=== PATIENT | female | born 1985 | race Caucasian/White ===

== ENCOUNTER 2016-11-04 21:13 | Emergency (ER) | payer BC ==
[2016-11-04] MEDS ORDERED: DIPH,PERTUS(ACELL)TETVAC-LF 0.5 ML VIAL IM ONE (21:56)
[2016-11-04] MEDS ORDERED: GELATIN SPONGE,ABSORB (SMALL) 1 EACH SPONGE TOPICAL STA (21:56)
--- NOTE | 2016-11-04 21:59 | ED ---
Wound/Laceration HPI - General Chief Complaint: Wound/Laceration Stated Complaint: finger lac Time Seen by Provider: 11/04/16 21:50 Source: patient, RN notes reviewed Mode of arrival: ambulatory Limitations: no limitations - History of Present Illness Initial Comments: 31-year-old female presents emergency Department chief complaint of finger laceration to her right hand. Patient states that she was using a mandolin slicer and states that she cut her right hand fifth digit. She is unsure when her last tetanus was. Patient denies any paresthesias. Patient states this happened an hour or 2 ago and states that she has tried to stop bleeding states he has not subsided. - Related Data Home Medications Medication Instructions Recorded Confirmed No Known Home Medications [No 11/04/16 11/04/16 Known Home Medications] Allergies Allergy/AdvReac Type Severity Reaction Status Date / Time No Known Allergies Allergy Verified 11/04/16 21:26 Review of Systems ROS Statement: Those systems with pertinent positive or pertinent negative responses have been documented in the HPI. ROS Other: All systems not noted in ROS Statement are negative. Past Medical History Past Medical History: No Reported History History of Any Multi-Drug Resistant Organisms: None Reported Past Surgical History: No Surgical Hx Reported Past Psychological History: Anxiety Smoking Status: Current every day smoker Past Alcohol Use History: Occasional Past Drug Use History: None Reported General Exam Limitations: no limitations General appearance: alert, in no apparent distress Neck exam: Present: normal inspection, full ROM. Absent: tenderness, meningismus, lymphadenopathy Respiratory exam: Present: normal lung sounds bilaterally. Absent: respiratory distress, wheezes, rales, rhonchi, stridor Cardiovascular Exam: Present: regular rate, normal rhythm, normal heart sounds. Absent: systolic murmur, diastolic murmur, rubs, gallop, clicks Extremities exam: Present: other (Right hand fifth digit there is a skin avulsion noted on the distal tip there is no deep involvement shows full range of motion Refill less than 2 seconds) Course Vital Signs 11/04/16 21:20 Temperature 98.8 F Pulse Rate 75 Respiratory 18 Rate Blood Pressure 117/67 O2 Sat by Pulse 98 Oximetry Medical Decision Making - Medical Decision Making 31-year-old female presents emergency department for skin avulsion to her right hand fifth digit. Patient's tetanus was updated Gelfoam was applied patient tolerated well with no complications. The wound was cleaned prior with saline and Betadine. Disposition Clinical Impression: Avulsion of skin of finger Disposition: HOME SELF-CARE Condition: Stable Instructions: Skin Avulsion (ED) Additional Instructions: Please return to the Emergency Department if symptoms worsen or any other concerns. Referrals: None,Stated [Primary Care Provider] - 1-2 days Time of Disposition: 21:59
[2016-11-04 22:30] VITALS: BP 126/69; PULSE 60; RESP 16; TEMP 98.9
== END 2016-11-04 22:30 | disposition home or self-care (01) ==
LOC: EC 21:13
DX: S61.206A Unspecified open wound of right little finger without damage to nail, initial encounter (principal); F17.200 Nicotine dependence, unspecified, uncomplicated; Z23 Encounter for immunization; W45.8XXA Other foreign body or object entering through skin, initial encounter; Y93.89 Activity, other specified
CPT/HCPCS: 90471; 90715; 99282

== ENCOUNTER 2018-02-20 13:38 | Emergency (ER) | payer OTHER ==
[2018-02-20] MEDS ORDERED: SODIUM CHLORIDE 0.9% 1,000 ML IV STA (14:14)
[2018-02-20] MEDS ORDERED: METOCLOPRAMIDE 5 MG/ML 2 ML VIAL IVP STA (14:14)
[2018-02-20] MEDS ORDERED: KETOROLAC 30 MG/ML 1 ML VIAL IVP STA (14:14)
[2018-02-20] MEDS ORDERED: diphenhydrAMINE 50 MG CAP PO STA (14:15)
--- NOTE | 2018-02-20 14:52 | CT ---
EXAMINATION TYPE: CT brain wo con DATE OF EXAM: 02/20/2018 COMPARISON: None INDICATION: Headache for 5-6 months worse in the last 2 months with visual disturbance DLP: 1052.4 mGycm, Automated exposure control for dose reduction was used. CONTRAST: None CT of the brain is performed utilizing 3 mm thick sections through the posterior fossa and 3 mm thick sections through the remaining calvarium. Study is performed within 24 hours of arrival to the hosp [facility]. No abnormal hyperdensity is present to suggest an acute intracranial hemorrhage. No mass lesion is evident. No acute infarcts are evident. Ventricles and sulci are appropriate for the patient age. There is partial opacification of the left maxillary sinus. Remaining paranasal sinuses and mastoid a ir cells within the [id number] are clear. Orbits as visualized within the [id number] are unremarkable. Suprasellar cistern appears unremarka ble. IMPRESSIONS: 1. Normal CT Brain 2. Retention cyst within a partially septated left maxillary sinus.
--- NOTE | 2018-02-20 15:06 | ED ---
General Adult HPI - General Chief complaint: Headache Stated complaint: migraine Time Seen by Provider: 02/20/18 13:47 Source: patient, RN notes reviewed Mode of arrival: ambulatory Limitations: no limitations - History of Present Illness Initial comments: 32-year-old female presents to the emergency department for a chief complaint of headaches 6 months. Patient states headaches are usually an aching pain. Patient states they're sometimes [place] eyes or across her forehead. She also has pain in her face. She complains of pain in her right side of her neck as well. She states these occur about 3 times a week and lasts for hours at a time. She states she also sometimes has pain with movement of her eyes and was not able to drive today. She admits to blurry vision when this pain occurs. 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 She was supposed to follow-up with for this but has not been able to do so. She denies nausea or vomiting.Patient has no other complaints at this time including shortness of breath, chest pain, abdominal pain, nausea or vomiting. - Related Data Home Medications Medication Instructions Recorded Confirmed No Known Home Medications 02/20/18 02/20/18 Allergies Allergy/AdvReac Type Severity Reaction Status Date / Time No Known Allergies Allergy Verified 02/20/18 13:57 Review of Systems ROS Statement: Those systems with pertinent positive or pertinent negative responses have been documented in the HPI. ROS Other: All systems not noted in ROS Statement are negative. Past Medical History Past Medical History: No Reported History History of Any Multi-Drug Resistant Organisms: None Reported Past Surgical History: No Surgical Hx Reported Past Psychological History: Anxiety Smoking Status: Current every day smoker Past Alcohol Use History: Occasional Past Drug Use History: None Reported General Exam Limitations: no limitations General appearance: alert, in no apparent distress Head exam: Present: atraumatic, normocephalic, normal inspection Eye exam: Present: normal appearance, nystagmus (intermittent nystagmus). Absent: EOMI (patient unable to look laterally bilat due to pain), scleral icterus, conjunctival injection Expanded Eyelids: Normal Inspection: Bilateral Pupils: Regular, Round: Bilateral, Reactive: Bilateral Sclera/Conjunctival: Normal Inspection: Bilateral Visual acuity (R) = 20/: 70 Visual acuity (L) = 20/: 40 With correction: No IOP (R) in mmH IOP (L) in mmH IOP measured with: [place] Neck exam: Present: tenderness (Tenderness to the right cervical trapezius). Absent: full ROM (Full flexion and extension, patient has limited rotation to the right to about 20, full rotation to the left) Respiratory exam: Present: normal lung sounds bilaterally. Absent: respiratory distress, wheezes, rales, rhonchi, stridor Cardiovascular Exam: Present: regular rate, normal rhythm, normal heart sounds. Absent: systolic murmur, diastolic murmur, rubs, gallop, clicks Neurological exam: Present: alert, oriented X3, CN II-XII intact Expanded Patient oriented to: Present: person, place, time Speech: Present: fluid speech Cranial nerves: EOM's Intact: Normal, Tongue Deviation: Normal, Nystagmus: Normal, Facial Sensation: Normal Cerebellar function: Finger to Nose: Normal, Romberg: Normal Upper motor neuron: Pronator Drift: Normal Sensory exam: Upper Extremity Light Touch: Normal, Upper Extremity Pin Prick: Normal, Lower Extremity Light Touch: Normal, Lower Extremity Pin Prick: Normal Motor strength exam: RUE: 5, LUE: 5, RLE: 5, LLE: 5 Eye Response: (4) open spontaneously Motor Response: (6) obeys commands Verbal Response: (5) oriented Tiera Total: 15 Psychiatric exam: Present: normal affect, normal mood Course Vital Signs 02/20/18 02/20/18 13:40 15:32 Temperature 97.6 F 97.9 F Pulse Rate 85 75 Respiratory 16 18 Rate Blood Pressure 113/66 126/77 O2 Sat by Pulse 96 96 Oximetry Medical Decision Making - Medical Decision Making 32-year-old female presents to the emergency department for a chief complaint of migraines. Patient has never been diagnosed with a migraine before. Patient describes the pain as an aching pain has been intermittent for 6 months. She has never seen someone for this. Patient recently had her eyes checked and was told her pressure and her eyes were high. On exam patient initially has decreased range of motion of extraocular movements. However after reevaluation patient has full range motion but significant nystagmus when looking to the left and right of bilateral eyes. Patient states this has been chronic throughout her entire life. Leon-Pen was used to check intraocular pressure, left was [address] was negative. No neuro deficits on exam. Patient was given Toradol Reglan and Benadryl and states she is having much better. Dr. Morel also saw patient. He spoke with Dr. pedrito ceron due to increased intraocular pressure who will see her in the office immediately after she is discharged. Patient agrees to go directly to his office and directions were given. She will follow up with primary care as well. Disposition Clinical Impression: Headache, Increased intraocular pressure Disposition: HOME SELF-CARE Condition: Good Instructions: Acute Headache (ED) Additional Instructions: Please go directly to Dr. De La Garza's office. Please follow-up with primary care as well as one to 2 days. Return to the emergency department if you have any worsening symptoms. Is patient prescribed a controlled substance at d/c from ED?: No Referrals: [facility],Clinic [Primary Care Provider] - 1-2 days Ozzie De La Garza MD [STAFF PHYSICIAN] - 1-2 days Time of Disposition: 15:25
[2018-02-20 15:33] VITALS: BP 126/77; PULSE 75; RESP 18; TEMP 97.9
== END 2018-02-20 15:34 | disposition home or self-care (01) ==
LOC: EC 13:38
DX: H40.053 Ocular hypertension, bilateral (principal); R51 Headache; F17.200 Nicotine dependence, unspecified, uncomplicated
CPT/HCPCS: 70450; 99284; 96374; 96375; 96361; J2765; J1885

== ENCOUNTER 2018-12-09 20:40 | Emergency (ER) | payer OTHER ==
[2018-12-09 20:53] VITALS: BP 116/62; PULSE 70; RESP 20; TEMP 98.2
--- NOTE | 2018-12-09 21:26 | XR ---
EXAMINATION TYPE: XR foot complete LT DATE OF EXAM: 12/09/2018 COMPARISON: NONE HISTORY: Pain TECHNIQUE: 3 views FINDINGS: Metatarsals are intact. I see no fracture nor dislocation. Joint spaces are normal. IMPRESSION: Negative left foot exam.
--- NOTE | 2018-12-09 21:40 | ED ---
General Adult HPI - General Chief complaint: Extremity Injury, Lower Stated complaint: Foot injury Time Seen by Provider: 12/09/18 20:57 Source: patient, family, RN notes reviewed, old records reviewed Mode of arrival: ambulatory Limitations: no limitations - History of Present Illness Initial comments: 33-year-old female patient presented to the chief complaint of left foot pain. Patient reports that approximately 2 weeks ago she dropped a 25 pound plate on the dorsal aspect of the foot. Patient works as she continues to have foot pain. Patient ambulatory with antalgic gait. Patient denies any other complaints. Systemic: Pt denies fatigue, fever/chills, rash. Pt denies weakness, night sweats, weight loss. Neuro: Pt denies headache, visual disturbances, syncope or pre-syncope. HEENT: Pt denies ocular discharge or irritation, otalgia, rhinorrhea, pharyngitis or notable lymphadenopathy. Cardiopulmonary: Pt denies chest pain, SOB, heart palpitations, dyspnea on exertion. Abdominal/GI: Pt denies abdominal pain, n/v/d. : Pt denies dysuria, burning w/ urination, frequency/urgency. Denies new onset urinary or bowel incontinence. MSK: Pt denies loss of strength or function in extremities. Neuro: Pt denies new onset weakness, paresthesias. - Related Data Home Medications Medication Instructions Recorded Confirmed No Known Home Medications 02/20/18 02/20/18 Allergies Allergy/AdvReac Type Severity Reaction Status Date / Time No Known Allergies Allergy Verified 12/09/18 20:53 Review of Systems ROS Statement: Those systems with pertinent positive or pertinent negative responses have been documented in the HPI. ROS Other: All systems not noted in ROS Statement are negative. Past Medical History Past Medical History: No Reported History History of Any Multi-Drug Resistant Organisms: None Reported Past Surgical History: No Surgical Hx Reported Past Psychological History: Anxiety Smoking Status: Current every day smoker Past Alcohol Use History: Occasional Past Drug Use History: Marijuana General Exam - General Exam Comments Initial Comments: Constitutional: NAD, AOX3, Pt has pleasant affect. HEENT: NC/AT, trachea midline, neck supple, no lymphadenopathy. Posterior pharynx non erythematous, without exudates. External ears appear normal, without discharge. Mucous membranes moist. Eyes PERRLA, EOM intact. There is no scleral icterus. No pallor noted. Cardiopulmonary: RRR, no murmurs, rubs or gallops, no JVD noted. Lungs CTAB in anterior and posterior connelly. No peripheral edema. Abdominal exam: Abdomen soft and non-distended. Abdomen non-tender to palpation in all 4 quadrants. Bowel sounds active in LLQ. No hepatosplenomegaly. No ecchymosis Neuro: CN II-XII grossly intact. No nuchal rigidity. No [place] eyes, no pittman sign, no hemotympanum. No cervical spinal tenderness. MSK: Dorsal aspect of left foot moderately tender to palpation. Mild amount ecchymoses. Patient able to wiggle toes. Sensation intact. Capillary refill less than 2 seconds. Distal pulses intact and equal. No posterior calf tenderness bilaterally, homans sign negative bilaterally. Posterior tibialis and radial pulse +2 bilaterally. Sensation intact in upper and lower extremities. Full active ROM in upper and lower extremities, 5/5 stregnth. Limitations: no limitations Course Vital Signs 12/09/18 20:49 Temperature 98.2 F Pulse Rate 70 Respiratory 20 Rate Blood Pressure 116/62 O2 Sat by Pulse 99 Oximetry Medical Decision Making - Medical Decision Making 33-year-old female patient in the chief complaint of left foot injury following driving a plate on it 2 weeks ago. She wasn't stable, afebrile. Plain film of foot do not display any acute pathology. Patient was discharged with postop walking shoe. Patient was, Motrin for pain. Patient follow up with primary care provider and orthopedic consult symptoms persist. Case discussed with Dr. Manley. Disposition Clinical Impression: Foot contusion Disposition: HOME SELF-CARE Condition: Stable Instructions (If sedation given, give patient instructions): Foot Contusion (ED) Additional Instructions: Patient to adhere to previously discussed treatment plan and will take medication(s) as directed. Patient to follow up with PCP in 1-2 days. Patient to return to ED if symptoms do not improve. PRIMARY care provider. Use crutches, limited weightbearing on left lower extremity. Follow-up with with good consult if symptoms persist. Is patient prescribed a controlled substance at d/c from ED?: No Referrals: [facility],Clinic [Primary Care Provider] - 1-2 days Vinnie Garcia PAC [PHYSICIAN CASING RUNNER] - 1-2 days
--- NOTE | 2018-12-09 22:02 | ED ---
Medical Decision Making - Medical Decision Making Addendum to instructions, patient may bear weight on lower extremity as tolerated. Disposition Clinical Impression: Foot contusion Disposition: HOME SELF-CARE Condition: Stable Instructions (If sedation given, give patient instructions): Foot Contusion (ED) Additional Instructions: Patient to adhere to previously discussed treatment plan and will take medication(s) as directed. Patient to follow up with PCP in 1-2 days. Patient to return to ED if symptoms do not improve. PRIMARY care provider. Use crutches, limited weightbearing on left lower extremity. Follow-up with with good consult if symptoms persist. Is patient prescribed a controlled substance at d/c from ED?: No Referrals: Vinnie Garcia PAC [PHYSICIAN EQUIPMENT CLEANER AND TESTER] - 1-2 days [facility],Clinic [Primary Care Provider] - 1-2 days
== END 2018-12-09 21:55 | disposition home or self-care (01) ==
LOC: EC 20:40
DX: S90.32XA Contusion of left foot, initial encounter (principal); F17.200 Nicotine dependence, unspecified, uncomplicated; W20.8XXA Other cause of strike by thrown, projected or falling object, initial encounter
CPT/HCPCS: 99284

== ENCOUNTER 2023-12-01 15:53 | Emergency (ER) | payer OTHER ==
[2023-12-01 16:07] VITALS: TEMP 97.2
--- NOTE | 2023-12-01 16:27 | ED ---
Abdominal Pain HPI - General Chief Complaint: Abdominal Pain Stated Complaint: Chest Pain Time Seen by Provider: 12/01/23 16:23 Source: patient, RN notes reviewed Mode of arrival: ambulatory Limitations: no limitations - History of Present Illness Initial Comments: 38-year-old female with history of Sdxhm-Bhistnvvo-Rmviq presenting with epigastric pain x 1 week. States she has been having intermittent pain for the past year, has been worsening in quality over the past week. Describes the pain as both sharp, dull, and throbbing. States the pain is worst in the right lower chest/abdomen, radiates to her right breast, specifically right nipple, right upper abdomen, right shoulder, right ear, and right side of neck. States the pain has worsened over the course of the week, last night considered calling EMS due to the severity of the pain. Reports food intake mildly improved symptoms. She has never had this before. Denies history of abdominal surgeries. Denies shortness of breath, pain worse with inspiration, fever, chills, vomiting. Does not take any medications. She is a current smoker. Denies recent surgeries, travel, leg swelling, history of blood clots. She is not on thinners. - Related Data Home Medications Medication Instructions Recorded Confirmed No Known Home Medications 02/20/18 02/20/18 Allergies Allergy/AdvReac Type Severity Reaction Status Date / Time No Known Allergies Allergy Verified 12/01/23 16:07 Review of Systems ROS Statement: Those systems with pertinent positive or pertinent negative responses have been documented in the HPI. ROS Other: All systems not noted in ROS Statement are negative. Past Medical History Past Medical History: No Reported History History of Any Multi-Drug Resistant Organisms: None Reported Past Surgical History: No Surgical Hx Reported Past Psychological History: Anxiety Smoking Status: Never smoker Past Alcohol Use History: Occasional Past Drug Use History: Marijuana General Exam Limitations: no limitations General appearance: alert, in no apparent distress Head exam: Present: atraumatic, normocephalic, normal inspection Eye exam: Present: normal appearance, PERRL, EOMI. Absent: scleral icterus, conjunctival injection, periorbital swelling ENT exam: Present: normal exam, mucous membranes moist Neck exam: Present: normal inspection. Absent: tenderness, meningismus, lymphadenopathy Respiratory exam: Present: normal lung sounds bilaterally. Absent: respiratory distress, wheezes, rales, rhonchi, stridor Cardiovascular Exam: Present: regular rate, normal rhythm, normal heart sounds. Absent: systolic murmur, diastolic murmur, rubs, gallop, clicks GI/Abdominal exam: Present: soft, normal bowel sounds. Absent: distended, tenderness, guarding, rebound, rigid Back exam: Absent: CVA tenderness (R), CVA tenderness (L) Neurological exam: Present: alert, oriented X3 Psychiatric exam: Present: normal affect, normal mood Skin exam: Present: warm, dry, intact, normal color. Absent: rash Course Vital Signs 12/01/23 12/01/23 16:04 18:21 Temperature 97.2 F L Pulse Rate 106 H 100 Respiratory 17 18 Rate Blood Pressure 118/68 116/76 O2 Sat by Pulse 99 98 Oximetry Medical Decision Making - Medical Decision Making Was pt. sent in by a medical professional or institution (, PA, SALES CLERK SUPERVISOR, urgent care, hospital, or [facility]...) When possible be specific @ -No Did you speak to anyone other than the patient for history (EMS, parent, family, police, friend...)? What history was obtained from this source @ -No Did you review nursing and triage notes (agree or disagree)? Why? @ -I reviewed and agree with nursing and triage notes Were old charts reviewed (outside hosp., previous admission, EMS record, old EKG, old radiological studies, urgent care reports/EKG's, [facility] records)? Report findings @ -No old charts were reviewed Differential Diagnosis (chest pain, altered mental status, abdominal pain women, abdominal pain men, vaginal bleeding, weakness, fever, dyspnea, syncope, headache, dizziness, GI bleed, back pain, seizure, CVA, palpatations, mental health, musculoskeletal)? @ -Differential Abdominal Pain Women: Appendicitis, Cholecystitis, diverticulosis, ischemic bowel, pancreatitis, hepatitis, UTI, gastroenteritis, AAA, incarcerated hernia, bowel obstruction, constipation, inflammatory bowel, hepatitis, peptic ulcer disease, splenic infarction, perforated viscus, vulvitis, ovarian torsion, PID, kidney stone, placenta abruption, this is not meant to be an all-inclusive list EKG interpreted by me (3pts min.). @ -As above X-rays interpreted by me (1pt min.). @ -Chest x-ray reveals no acute process CT interpreted by me (1pt min.). @ -None done U/S interpreted by me (1pt. min.). @ -None done What testing was considered but not performed or refused? (CT, X-rays, U/S, labs)? Why? @ -Considered ultrasound of gallbladder however patient has no abdominal tenderness What meds were considered but not given or refused? Why? @ -Patient declined pain medications during visit Did you discuss the management of the patient with other professionals (professionals i.e. , PA, SALES CLERK SUPERVISOR, lab, RT, psych nurse, social work msw, lean engineer, teacher, transportation security officer, correctional case records supervisor)? Give summary @ -No Was smoking cessation discussed for >3mins.? @ -No Was critical care preformed (if so, how long)? @ -No Were there social determinants of health that impacted care today? How? (Homelessness, low income, unemployed, alcoholism, drug addiction, transportation, low edu. Level, literacy, decrease access to med. care, correction, rehab)? @ -No Was there de-escalation of care discussed even if they declined (Discuss DNR or withdrawal of care, Hospice)? DNR status @ -No What co-morbidities impacted this encounter? (DM, HTN, Smoking, COPD, CAD, Cancer, CVA, ARF, Chemo, Hep., AIDS, mental health diagnosis, sleep apnea, morbid obesity)? @ -None Was patient admitted / discharged? Hospital course, mention meds given and route, prescriptions, significant lab abnormalities, going to OR and other pertinent info. @ -Patient was discharged. This is a 38-year-old female presenting with epigastric pain x 1 week with radiation to the chest, neck, shoulder, ear, and breast. Patient states she has had this pain for a year intermittently but has been worsening over the course of the week. No acute distress. Heart lungs clear to auscultation bilaterally, abdomen is soft and nontender. EKG reveals normal sinus rhythm with delta wave consistent with Ycvyc-Pkcnhemfj-Qkscy, patient has a known history of this. Chest x-ray reveals no acute process. Laboratory studies including CBC, CMP, lipase, lactic acid, troponin largely unremarkable. Negative findings discussed with patient. It does not appear that there is emergent etiology causing symptoms at this time. Pain does not sound pleuritic in nature. Discussed with patient importance of following up with PCP and political consultant and patient conveys understanding and agrees with plan. Return precautions discussed. Case was discussed with my ED attending Dr. Kelly. Patient discharged in stable condition. Undiagnosed new problem with uncertain prognosis? @ -No Drug Therapy requiring intensive monitoring for toxicity (Heparin, Nitro, Insulin, Cardizem)? @ -No Were any procedures done? @ -No Diagnosis/symptom? @ -Epigastric pain Acute, or Chronic, or Acute on Chronic? @ -Acute Uncomplicated (without systemic symptoms) or Complicated (systemic symptoms)? @ -Uncomplicated Side effects of treatment? @ -No Exacerbation, Progression, or Severe Exacerbation? @ -No Poses a threat to life or bodily function? How? (Chest pain, [place], [place], pneumonia, PE, COPD, DKA, ARF, appy, cholecystitis, CVA, Diverticulitis, Homicidal, Suicidal, threat to staff... and all critical care pts) @ -Unlikely at this time - Lab Data Result diagrams: 12/01/23 17:15 12/01/23 17:15 Lab Results 12/01/23 12/01/23 12/01/23 Range/Units 17:15 17:15 17:15 WBC 6.7 (3.8-10.6) k/uL RBC 3.88 (3.80-5.40) m/uL Hgb 12.2 (11.4-16.0) gm/dL Hct 36.2 (34.0-46.0) % MCV 93.3 (80.0-100.0) fL MCH 31.6 (25.0-35.0) pg MCHC 33.8 (31.0-37.0) g/dL RDW 12.4 (11.5-15.5) % Plt Count 341 (150-450) k/uL MPV 7.2 Neutrophils % (Manual) 75 % Band Neuts % (Manual) 2 % Lymphocytes % (Manual) 21 % Monocytes % (Manual) 1 % Eosinophils % (Manual) 1 % Neutrophils # (Manual) 5.10 (1.3-7.7) k/uL Lymphocytes # (Manual) 1.41 (1.0-4.8) k/uL Monocytes # (Manual) 0.07 (0-1.0) k/uL Eosinophils # (Manual) 0.07 (0-0.7) k/uL Nucleated RBCs 0 (0-0) /100 WBC Manual Slide Review Performed Sodium 140 (137-145) mmol/L Potassium 4.0 (3.5-5.1) mmol/L Chloride 103 (98-107) mmol/L Carbon Dioxide 32 H (22-30) mmol/L Anion Gap 5 mmol/L BUN 13 (7-17) mg/dL Creatinine 0.70 (0.52-1.04) mg/dL Est GFR (CKD-EPI)AfAm >90 (>60 ml/min/1.73 sqM) Est GFR (CKD-EPI)NonAf >90 (>60 ml/min/1.73 sqM) Glucose 120 H (74-99) mg/dL Plasma Lactic Acid Ronald 0.8 (0.7-2.0) mmol/L Calcium 10.0 (8.4-10.2) mg/dL Total Bilirubin 0.4 (0.2-1.3) mg/dL AST 20 (14-36) U/L ALT 10 (4-34) U/L Alkaline Phosphatase 36 L (38-126) U/L Troponin I (0.000-0.034) ng/mL Total Protein 7.3 (6.3-8.2) g/dL Albumin 4.6 (3.5-5.0) g/dL Lipase 72 (23-300) U/L Urine HCG, Qual (Not Detectd) 12/01/23 12/01/23 Range/Units 17:15 17:15 WBC (3.8-10.6) k/uL RBC (3.80-5.40) m/uL Hgb (11.4-16.0) gm/dL Hct (34.0-46.0) % MCV (80.0-100.0) fL MCH (25.0-35.0) pg MCHC (31.0-37.0) g/dL RDW (11.5-15.5) % Plt Count (150-450) k/uL MPV Neutrophils % (Manual) % Band Neuts % (Manual) % Lymphocytes % (Manual) % Monocytes % (Manual) % Eosinophils % (Manual) % Neutrophils # (Manual) (1.3-7.7) k/uL Lymphocytes # (Manual) (1.0-4.8) k/uL Monocytes # (Manual) (0-1.0) k/uL Eosinophils # (Manual) (0-0.7) k/uL Nucleated RBCs (0-0) /100 WBC Manual Slide Review Sodium (137-145) mmol/L Potassium (3.5-5.1) mmol/L Chloride (98-107) mmol/L Carbon Dioxide (22-30) mmol/L Anion Gap mmol/L BUN (7-17) mg/dL Creatinine (0.52-1.04) mg/dL Est GFR (CKD-EPI)AfAm (>60 ml/min/1.73 sqM) Est GFR (CKD-EPI)NonAf (>60 ml/min/1.73 sqM) Glucose (74-99) mg/dL Plasma Lactic Acid Ronald (0.7-2.0) mmol/L Calcium (8.4-10.2) mg/dL Total Bilirubin (0.2-1.3) mg/dL AST (14-36) U/L ALT (4-34) U/L Alkaline Phosphatase (38-126) U/L Troponin I <0.012 (0.000-0.034) ng/mL Total Protein (6.3-8.2) g/dL Albumin (3.5-5.0) g/dL Lipase (23-300) U/L Urine HCG, Qual Not Detected (Not Detectd) - EKG Data -: EKG Interpreted by Me EKG Comments: EKG reveals normal sinus rhythm with delta waves consistent with Sftfz-Qziolgybh-Ylyby syndrome. Ventricular rate 90 bpm, WI interval 110, QRS duration 125, QT/QTc 366/414 Disposition Clinical Impression: Epigastric pain Disposition: HOME SELF-CARE Condition: Stable Instructions (If sedation given, give patient instructions): Epigastric Pain (ED) Additional Instructions: Follow-up with PCP and MANAGER SPRING as discussed. Please return to the Emergency Department if symptoms worsen or any other concerns. Is patient prescribed a controlled substance at d/c from ED?: No Referrals: None,Stated [Primary Care Provider] - 1-2 days Time of Disposition: 19:13
[2023-12-01 18:06] LABS: ALT 10 U/L (4-34); AST 20 U/L (14-36); African American GFR (CKD) >90 (>60 ml/min/1.73 sqM); Albumin 4.6 g/dL (3.5-5.0); Alkaline Phosphatase 36 U/L (38-126); Anion Gap 5 mmol/L; Blood Urea Nitrogen 13 mg/dL (7-17); Carbon Dioxide 32 mmol/L (22-30); Chloride 103 mmol/L (98-107); Glucose 120 mg/dL (74-99); Lipase 72 U/L (23-300); Non-African American GFR(CKD) >90 (>60 ml/min/1.73 sqM); Sodium 140 mmol/L (137-145); Total Bilirubin 0.4 mg/dL (0.2-1.3); Total Protein 7.3 g/dL (6.3-8.2)
[2023-12-01 18:17] LABS: HCT 36.2 % (34.0-46.0); HGB 12.2 gm/dL (11.4-16.0); MCH 31.6 pg (25.0-35.0); MCHC 33.8 g/dL (31.0-37.0); MCV 93.3 fL (80.0-100.0); Mean Platelet Volume 7.2; Platelet Count 341 k/uL (150-450); RBC 3.88 m/uL (3.80-5.40); RDW 12.4 % (11.5-15.5); WBC 6.7 k/uL (3.8-10.6)
[2023-12-01 18:22] VITALS: RESP 18
[2023-12-01 18:41] LABS: Eosinophils # (M) 0.07 k/uL (0-0.7); Lymphocytes # (M) 1.41 k/uL (1.0-4.8); Monocytes # (M) 0.07 k/uL (0-1.0); Nucleated Red Blood Cells 0 /100 WBC (0-0); Total Cells Counted 100
[2023-12-01 18:42] LABS: Band Neutrophils % 2 %; Neutrophils % (M) 75 %
--- NOTE | 2023-12-01 18:54 | XR ---
EXAMINATION TYPE: XR chest 2V DATE OF EXAM: 12/01/2023 COMPARISON: None INDICATION: Epigastric discomfort, pain TECHNIQUE: Frontal and lateral views of the chest are obtained. FINDINGS: The heart size is normal. The pulmonary vasculature is normal. The lungs are clear. IMPRESSION: 1. No acute pulmonary process. [facility], , 12/01/2023 6:52 PM
[2023-12-01 19:27] VITALS: BP 121/80; PULSE 98
== END 2023-12-01 19:28 | disposition home or self-care (01) ==
LOC: EC 15:53
DX: R10.13 Epigastric pain (principal)
CPT/HCPCS: 36415; 71046; 80053; 81025; 83605; 83690; 84484; 85025; 93005; 99285